=== PATIENT | male | born 1970 | race Caucasian/White ===

== ENCOUNTER 2019-04-23 17:32 | Emergency (ER) | payer OTHER ==
[2019-04-23] MEDS ORDERED: Ondansetron 4 MG Tab.DIS PO ONE (18:41)
--- NOTE | 2019-04-23 19:01 | EDM.PDOC ---
<Darling Cannon Lor - Last Filed: 04/23/19 22:36> ED HPI GENERAL MEDICAL PROBLEM - General Chief Complaint: General Stated Complaint: [facility] Time Seen by Provider: 04/23/19 18:22 Source of Information: Reports: Patient History Limitations: Reports: Altered Mental Status (pt states he does not know where he is, what day it is, what time it is, or who the president of the [facility] is.) - History of Present Illness INITIAL COMMENTS - FREE TEXT/NARRATIVE: Patient is a 49-year-old male who is brought into the ED by ambulance service for a couple different complaints. The patient was staying at a local motel. Patient is complaining of mid abdominal pain, and constipation, and states that he cannot urinate. Patient states that he woke up in this hotel room, and he does not know how long he was asleep or what time it was when he woke up. Patient is delusional at this time, he states that he has metal plates in his abdomen that opening close. He does not know where he is, he does not know what town he is in, he did not know what year it is, he is not know who the president [facility] is. Patient states that he is requiring x-rays as well , and states that he also does not have any blood left in him. He states he is not having any fevers or chills, he states he has been mildly nauseous as he has been dry heaving. He states that he does not drink water, his oral mucosa is very dry. He denies taking any medications on a regular basis, he does not have a regular doctor that he sees. He denies any further medical history. He denies any alcohol use, tobacco use, or drug use at this time. He does not think he has any sort of surgical history. Abdomen Pain Score (Numeric/FACES): 8 - Related Data Allergies Allergy/AdvReac Type Severity Reaction Status Date / Time No Known Allergies Allergy Verified 04/23/19 17:41 Home Meds: Home Meds . [No Known Home Meds] 04/23/19 [History] Past Medical History - Past Health History Medical/Surgical History: Denies Medical/Surgical History Social & Family History - Tobacco Use Smoking Status *Q: Never Smoker - Caffeine Use Caffeine Use: Reports: None - Recreational Drug Use Recreational Drug Use: No ED ROS GENERAL - Review of Systems Review Of Systems: See Below Constitutional: Denies: Fever, Chills HEENT: Denies: Throat Pain Respiratory: Denies: Shortness of Breath, Cough Cardiovascular: Denies: Chest Pain GI/Abdominal: Reports: Abdominal Pain (epigastric abd pain), Constipation, Nausea. Denies: Diarrhea, Vomiting : Denies: Dysuria, Frequency, Urgency Skin: Reports: Dryness Psychiatric: Reports: Confusion. Denies: Agitation, Anxiety, Hallucinations, Homicidal Ideation, Mood Lability, Suicidal Ideation ED EXAM, GENERAL - Physical Exam Exam: See Below Exam Limited By: Altered Mental Status General Appearance: Alert, WD/WN, No Apparent Distress Eye Exam: Bilateral Eye: EOMI, Normal Inspection, PERRL Ears: Normal External Exam Throat/Mouth: Normal Inspection, Normal Lips, Normal Teeth, Normal Gums, Normal Oropharynx, Normal Voice, No Airway Compromise, Other (oral mucosa is very dry at this time.) Head: Atraumatic, Normocephalic Neck: Normal Inspection Respiratory/Chest: No Respiratory Distress, Lungs Clear, Normal Breath Sounds, No Accessory Muscle Use, Chest Non-Tender Cardiovascular: Normal Peripheral Pulses, Regular Rate, Rhythm, No Murmur Peripheral Pulses: 3+: Radial (L), Radial (R) GI/Abdominal: Normal Bowel Sounds, Soft, Guarding, Tender (generalized abdominal pain). No: Rigid, Rebound Neurological: Alert, CN II-XII Intact (grossly), Normal Gait Psychiatric: Other (Patient is expressing delusional thought processes. He states that he has plates in his abdomen that allow him to use the bathroom. He is told nursing staff that he does not drink water, and cannot pee, as he does not have "insides". He is not threatening to hurt others, nor is he threatening to hurt himself) Skin Exam: Warm, Intact, Normal Color, No Rash, Other (Skin is very dry, flaky in nature, oral mucosa is very dry.) EKG INTERPRETATION EKG Date: 04/23/19 Time: 20:30 Rhythm: NSR Rate (Beats/Min): 91 [place]: Normal P-Wave: Present QRS: Normal ST-T: Depressed (1mm depression noted w T wave inversions in V4-V5.) QT: Normal Comparison: NA - No Prior EKG EKG Interpretation Comments: Reviewed with Dr. Jaquez and by myself. There is a [address] depression with T wave inversions noted in V4 and V5, but no other acute ischemic changes. Course - Vital Signs Last Recorded V/S: Last Vital Signs Temp 35.7 C L 04/23/19 17:43 Pulse 94 04/23/19 17:43 Resp 20 04/23/19 17:43 BP 117/99 H 04/23/19 17:43 Pulse Ox 96 04/23/19 17:43 - Orders/Labs/Meds Orders: Active Orders 24 hr Category Date Time Status EKG Documentation Completion [RC] STAT Care 04/23/19 20:02 Active Oral Fluid Challenge [RC] ASDIRECTED Care 04/23/19 18:40 Active Peripheral IV Care [RC] . DIRECTED Care 04/23/19 21:39 Active Abdomen 2V AP Flat Upright [CR] Stat Exams 04/23/19 18:39 Taken Lactated Ringers [Ringers, Lactated] 1,000 ml Med 04/23/19 23:15 Active IV ASDIRECTED Sodium Chloride 0.9% [Saline Flush] Med 04/23/19 21:39 Active 10 ml FLUSH ASDIRECTED PRN Peripheral IV Insertion Adult [OM.PC] Stat Oth 04/23/19 21:39 Ordered Medication Orders Lactated Ringer's (Ringers, Lactated) 1,000 mls @ 150 mls/hr IV ASDIRECTED KASANDRA Last Admin: 04/23/19 23:45 Dose: 150 mls/hr Sodium Chloride (Saline Flush) 10 ml FLUSH ASDIRECTED PRN PRN Reason: Keep Vein Open Last Admin: 04/23/19 22:00 Dose: 10 ml Labs: Laboratory Tests 04/23/19 04/23/19 04/23/19 Range/Units 00:38 00:38 19:34 WBC 12.20 H (4.23-9.07) K/mm3 RBC 5.82 (4.63-6.08) M/mm3 Hgb 17.4 (13.7-17.5) gm/dl Hct 52.6 H (40.1-51.0) % MCV 90.4 (79.0-92.2) fl MCH 29.9 (25.7-32.2) pg MCHC 33.1 (32.2-35.5) g/dl RDW Std Deviation 48.2 H (35.1-43.9) fL Plt Count 379 H (163-337) K/mm3 MPV 11.9 (9.4-12.3) fl Neut % (Auto) 80.9 H (34.0-67.9) % Lymph % (Auto) 13.1 L (21.8-53.1) % [place] % (Auto) 5.8 (5.3-12.2) % Eos % (Auto) 0 L (0.8-7.0) Baso % (Auto) 0.1 (0.1-1.2) % Neut # (Auto) 9.87 H (1.78-5.38) K/mm3 Lymph # (Auto) 1.60 (1.32-3.57) K/mm3 [place] # (Auto) 0.71 (0.30-0.82) K/mm3 Eos # (Auto) 0.00 L (0.04-0.54) K/mm3 Baso # (Auto) 0.01 (0.01-0.08) K/mm3 Manual Slide Review Normal smear Sodium (136-145) mEq/L Potassium (3.5-5.1) mEq/L Chloride (98-107) mEq/L Carbon Dioxide (21-32) mEq/L Anion Gap (5-15) BUN (7-18) mg/dL Creatinine (0.7-1.3) mg/dL Est Cr Clr Drug Dosing mL/min Estimated GFR (MDRD) (>60) mL/min BUN/Creatinine Ratio (14-18) Glucose (74-106) mg/dL Calcium (8.5-10.1) mg/dL Total Bilirubin (0.2-1.0) mg/dL AST (15-37) U/L ALT (16-63) U/L Alkaline Phosphatase (46-116) U/L Troponin I (0.00-0.056) ng/mL Total Protein (6.4-8.2) g/dl Albumin (3.4-5.0) g/dl Globulin gm/dL Albumin/Globulin Ratio (1-2) TSH 3rd Generation (0.358-3.74) uIU/mL Urine Color Miriam H (Yellow) Urine Appearance Cloudy H (Clear) Urine pH 6.0 (5.0-8.0) Ur Specific [place] 1.025 (1.005-1.030) Urine Protein 2+ H (Negative) Urine Glucose (UA) Trace H (Negative) Urine Ketones 1+ H (Negative) Urine Occult Blood Negative (Negative) Urine Nitrite Positive H (Negative) Urine Bilirubin 2+ H (Negative) Urine Urobilinogen 4.0 H (0.2-1.0) Ur Leukocyte Esterase Negative (Negative) Urine RBC 0-5 (0-5) /hpf Urine WBC 0-5 (0-5) /hpf Ur Squamous Epith Cells 0-5 (0-5) /hpf Calcium Oxalate Crystal Few H (NONE) Amorphous Sediment Few H (NOT SEEN) /hpf Urine Bacteria Moderate H (FEW) /hpf Urine Mucus Many H (FEW) /hpf Salicylates (2.8-20) mg/dL Urine Opiates Screen Negative (YWDYGH=677) Ur Buprenorphine Scrn Negative (CUTOFF=10) Ur Oxycodone Screen Negative (LNN7BS=595) Urine Methadone Screen Negative (JJA5ZV=475) Ur Propoxyphene Screen Negative (BVKSEG=224) Acetaminophen (10-30) ug/mL Ur Barbiturates Screen Negative (IQXCBX=804) Ur Tricyclics Screen Negative (BQEGXK=468) Ur Phencyclidine Scrn Negative (CUTOFF=25) Ur Amphetamine Screen Negative (HTHEFE=395) U Methamphetamines Scrn Negative (NKHPWU=199) U Benzodiazepines Scrn Negative (PTSBMW=936) U Cocaine Metab Screen Negative (HXZSIX=409) U Marijuana (THC) Screen Negative (CUTOFF=50) Ethyl Alcohol (0.00) gm% 04/23/19 04/23/19 04/23/19 Range/Units 19:34 19:34 19:34 WBC (4.23-9.07) K/mm3 RBC (4.63-6.08) M/mm3 Hgb (13.7-17.5) gm/dl Hct (40.1-51.0) % MCV (79.0-92.2) fl MCH (25.7-32.2) pg MCHC (32.2-35.5) g/dl RDW Std Deviation (35.1-43.9) fL Plt Count (163-337) K/mm3 MPV (9.4-12.3) fl Neut % (Auto) (34.0-67.9) % Lymph % (Auto) (21.8-53.1) % [place] % (Auto) (5.3-12.2) % Eos % (Auto) (0.8-7.0) Baso % (Auto) (0.1-1.2) % Neut # (Auto) (1.78-5.38) K/mm3 Lymph # (Auto) (1.32-3.57) K/mm3 [place] # (Auto) (0.30-0.82) K/mm3 Eos # (Auto) (0.04-0.54) K/mm3 Baso # (Auto) (0.01-0.08) K/mm3 Manual Slide Review Sodium 147 H (136-145) mEq/L Potassium 3.2 L (3.5-5.1) mEq/L Chloride 106 (98-107) mEq/L Carbon Dioxide 25 (21-32) mEq/L Anion Gap 19.2 H (5-15) BUN 17 (7-18) mg/dL Creatinine 1.2 (0.7-1.3) mg/dL Est Cr Clr Drug Dosing 76.10 mL/min Estimated GFR (MDRD) > 60 (>60) mL/min BUN/Creatinine Ratio 14.2 (14-18) Glucose 133 H (74-106) mg/dL Calcium 10.5 H (8.5-10.1) mg/dL Total Bilirubin 1.4 H (0.2-1.0) mg/dL AST 37 (15-37) U/L ALT 124 H (16-63) U/L Alkaline Phosphatase 78 (46-116) U/L Troponin I (0.00-0.056) ng/mL Total Protein 8.4 H (6.4-8.2) g/dl Albumin 4.2 (3.4-5.0) g/dl Globulin 4.2 gm/dL Albumin/Globulin Ratio 1.0 (1-2) TSH 3rd Generation 1.434 (0.358-3.74) uIU/mL Urine Color (Yellow) Urine Appearance (Clear) Urine pH (5.0-8.0) Ur Specific [place] (1.005-1.030) Urine Protein (Negative) Urine Glucose (UA) (Negative) Urine Ketones (Negative) Urine Occult Blood (Negative) Urine Nitrite (Negative) Urine Bilirubin (Negative) Urine Urobilinogen (0.2-1.0) Ur Leukocyte Esterase (Negative) Urine RBC (0-5) /hpf Urine WBC (0-5) /hpf Ur Squamous Epith Cells (0-5) /hpf Calcium Oxalate Crystal (NONE) Amorphous Sediment (NOT SEEN) /hpf Urine Bacteria (FEW) /hpf Urine Mucus (FEW) /hpf Salicylates (2.8-20) mg/dL Urine Opiates Screen (ZZGKKR=310) Ur Buprenorphine Scrn (CUTOFF=10) Ur Oxycodone Screen (OTK8YY=452) Urine Methadone Screen (SOH7FF=475) Ur Propoxyphene Screen (XKVIMU=610) Acetaminophen 0 L (10-30) ug/mL Ur Barbiturates Screen (MEGEBD=667) Ur Tricyclics Screen (UTHAYP=123) Ur Phencyclidine Scrn (CUTOFF=25) Ur Amphetamine Screen (XFOLLF=467) U Methamphetamines Scrn (ZKSHJK=553) U Benzodiazepines Scrn (PPLCAE=513) U Cocaine Metab Screen (HYMBYW=640) U Marijuana (THC) Screen (CUTOFF=50) Ethyl Alcohol 0.00 (0.00) gm% 04/23/19 04/23/19 04/24/19 Range/Units 19:34 19:34 04:51 WBC (4.23-9.07) K/mm3 RBC (4.63-6.08) M/mm3 Hgb (13.7-17.5) gm/dl Hct (40.1-51.0) % MCV (79.0-92.2) fl MCH (25.7-32.2) pg MCHC (32.2-35.5) g/dl RDW Std Deviation (35.1-43.9) fL Plt Count (163-337) K/mm3 MPV (9.4-12.3) fl Neut % (Auto) (34.0-67.9) % Lymph % (Auto) (21.8-53.1) % [place] % (Auto) (5.3-12.2) % Eos % (Auto) (0.8-7.0) Baso % (Auto) (0.1-1.2) % Neut # (Auto) (1.78-5.38) K/mm3 Lymph # (Auto) (1.32-3.57) K/mm3 [place] # (Auto) (0.30-0.82) K/mm3 Eos # (Auto) (0.04-0.54) K/mm3 Baso # (Auto) (0.01-0.08) K/mm3 Manual Slide Review Sodium 145 (136-145) mEq/L Potassium 3.8 (3.5-5.1) mEq/L Chloride 108 H (98-107) mEq/L Carbon Dioxide 28 (21-32) mEq/L Anion Gap 12.8 (5-15) BUN 16 (7-18) mg/dL Creatinine 1.1 (0.7-1.3) mg/dL Est Cr Clr Drug Dosing 83.02 mL/min Estimated GFR (MDRD) > 60 (>60) mL/min BUN/Creatinine Ratio 14.5 (14-18) Glucose 123 H (74-106) mg/dL Calcium 9.3 (8.5-10.1) mg/dL Total Bilirubin (0.2-1.0) mg/dL AST (15-37) U/L ALT (16-63) U/L Alkaline Phosphatase (46-116) U/L Troponin I < 0.017 (0.00-0.056) ng/mL Total Protein (6.4-8.2) g/dl Albumin (3.4-5.0) g/dl Globulin gm/dL Albumin/Globulin Ratio (1-2) TSH 3rd Generation (0.358-3.74) uIU/mL Urine Color (Yellow) Urine Appearance (Clear) Urine pH (5.0-8.0) Ur Specific [place] (1.005-1.030) Urine Protein (Negative) Urine Glucose (UA) (Negative) Urine Ketones (Negative) Urine Occult Blood (Negative) Urine Nitrite (Negative) Urine Bilirubin (Negative) Urine Urobilinogen (0.2-1.0) Ur Leukocyte Esterase (Negative) Urine RBC (0-5) /hpf Urine WBC (0-5) /hpf Ur Squamous Epith Cells (0-5) /hpf Calcium Oxalate Crystal (NONE) Amorphous Sediment (NOT SEEN) /hpf Urine Bacteria (FEW) /hpf Urine Mucus (FEW) /hpf Salicylates 0.2 L (2.8-20) mg/dL Urine Opiates Screen (MNKXYH=834) Ur Buprenorphine Scrn (CUTOFF=10) Ur Oxycodone Screen (AZK2HA=655) Urine Methadone Screen (RUW1OX=391) Ur Propoxyphene Screen (QXEZXU=080) Acetaminophen (10-30) ug/mL Ur Barbiturates Screen (HWCHIP=995) Ur Tricyclics Screen (WIGNCP=135) Ur Phencyclidine Scrn (CUTOFF=25) Ur Amphetamine Screen (OICVGG=939) U Methamphetamines Scrn (LIQLBK=608) U Benzodiazepines Scrn (CYIJTV=784) U Cocaine Metab Screen (VMLIZI=531) U Marijuana (THC) Screen (CUTOFF=50) Ethyl Alcohol (0.00) gm% Meds: Medications Generic Name Dose Route Start Last Admin Trade Name Freq PRN Reason Stop Dose Admin Lactated Ringer's 1,000 mls @ 150 mls/hr 04/23/19 23:15 04/23/19 23:45 Ringers, Lactated IV 150 mls/hr ASDIRECTED KASANDRA Administration Sodium Chloride 10 ml 04/23/19 21:39 04/23/19 22:00 Saline Flush FLUSH 10 ml ASDIRECTED PRN Administration Keep Vein Open Discontinued Medications Generic Name Dose Route Start Last Admin Trade Name Freq PRN Reason Stop Dose Admin Sodium Chloride 1,000 mls @ 999 mls/hr 04/23/19 21:39 04/23/19 22:22 Normal Saline IV 04/23/19 22:39 999 mls/hr ONETIME ONE Administration Magnesium Citrate 296 ml 04/23/19 21:54 04/23/19 22:22 Citrate Of Magnesia PO 04/23/19 21:55 296 ml ONETIME ONE Administration Ondansetron HCl 4 mg 04/23/19 18:41 04/23/19 18:48 Zofran Odt PO 04/23/19 18:42 4 mg ONETIME ONE Administration Potassium Chloride 40 meq 04/23/19 22:30 04/23/19 22:43 Klor-Con M20 PO 04/23/19 22:31 40 meq ONETIME ONE Administration - Re-Assessments/Exams Free Text/Narrative Re-Assessment/Exam: 04/23/19 19:06 Patient presents to the ED via ambulance service for a couple different complaints. Patient is somewhat delusional, he is complaining of abdominal pain however and nausea. I have obtained a flat and upright abdomen x-rays, laboratory evaluation to include CBC, CMP, EtOH, urinalysis and a drug screen if he will provide us with urine for this. He is given 4 mg of ODT Zofran, as he states he does not want an IV, and he does not want IV fluids. I will try to get the nurse to get him to drink oral water or oral fluids to try to get him to provide us with a urine sample at this time. 04/23/19 21:39 Labs are back, and TSH is within normal limits, metabolic panel demonstrates a mildly low potassium, mildly elevated sodium, elevated anion gap of 19, and other subtle abnormalities. I do believe this is due to the patient not wanting to eat or drink anything. I called [facility] at [facility] for possible psych transfer due to the patient's mental state, they state that while they recognize the need for his psychiatric admission, that they cannot accept the patient on the psychiatric floor because he needs IV fluids. At this time I have ordered an IV with IV fluids to be given to the patient, in hopes that he will allow us to do so. Patient did refuse IV fluids to begin with on initial exam. When I asked him if would be okay if I ordered an IV with IV fluids, he did not give me an answer. But he is allowing lab to draw their labs as needed. 04/23/19 22:34 Patient was willing to let us start an IV at this time, he will be given 1 L of fluids wide open, and then likely a second liter over the course of the night, I was in contact again with AMADO Campos, Dr. Rosie Grimm, their psychologist office automation technician would like his labs redrawn and made sure that they are within normal limits before she accept him for management at this time. His potassium is only mildly low at 3.2, so he did get 40 mEq by mouth of this, and I am hopeful that the IV fluids will help equilibrate the other abnormalities. It is likely that the patient will have to stay in this ER overnight, and be transported by petrophysicist tomorrow morning to [facility]. Although I do not have acceptance at this time, I am hopeful that this will have a bed available in the morning, and when the patient's labs are "normalized". Departure - Departure Time of Disposition: 22:36 Disposition: DC/Tfer to Psych Hosp/Unit 65 Condition: Fair Clinical Impression: Delusions - Discharge Information *PRESCRIPTION DRUG MONITORING PROGRAM REVIEWED*: No *COPY OF PRESCRIPTION DRUG MONITORING REPORT IN PATIENT NILES: No Referrals: PCP,None [Primary Care Provider] - Forms: ED Department Discharge Sepsis Event Note - Evaluation Sepsis Screening Result: No Definite Risk - Focused Exam Date Exam was Performed: 04/23/19 Time Exam was Performed: 22:36 <He Jaquez - Last Filed: 04/24/19 05:52> Course - Re-Assessments/Exams Free Text/Narrative Re-Assessment/Exam: 04/24/19 05:41 The patient's repeat chemistry panel is remarkable only for a chloride of 108 and a blood glucose of 123, with the remainder of his chemistry panel being normal. We are checking with [facility] to see if the patient will now be accepted. 04/24/19 05:50 Case discussed with the nurse on the [facility] psychiatric floor at 05:40. Case then discussed with Tata at [facility] at 05:45. Case then discussed with Dr. Grimm, Psychiatrist at [facility], at 05:48. She accepted the patient for transfer to their facility. The patient will be transported by the [facility]'s department. Departure - Departure Time of Disposition: 05:51 Sepsis Event Note - Focused Exam Date Exam was Performed: 04/24/19 Time Exam was Performed: 05:50
[2019-04-23] MEDS ORDERED: Sodium Chloride 0.9% 1,000 ML IV ONE (21:39)
[2019-04-23] MEDS ORDERED: Sodium Chloride 0.9% 10 ML Syringe FLUSH PRN (21:39)
[2019-04-23] MEDS ORDERED: Magnesium Citrate Solution 296 ML Bottle PO ONE (21:54)
[2019-04-23] MEDS ORDERED: Potassium Chloride 20 MEQ Tab.ER PO ONE (22:30)
[2019-04-23] MEDS ORDERED: Lactated Ringers 1,000 ML IV SCH (23:15)
--- NOTE | 2019-04-24 17:09 | CR ---
Abdomen: Supine view of the abdomen was obtained as well as upright study. Comparison: No previous study. Bowel gas pattern appears normal. No free air is identified. No abnormal calcifications or soft tissue abnormality is seen. Bony structures are unremarkable. Impression: 1. Nothing acute is appreciated on two-view abdominal x-ray. Diagnostic code #1 This report was dictated in [place] Standard Time
== END 2019-04-24 09:15 ==
LOC: JD.ED 17:32
DX: F22 Delusional disorders (principal); R10.84 Generalized abdominal pain; R11.0 Nausea
CPT/HCPCS: 36415; 74019; 80048; 80053; 80306; 80307; 81001; 84443; 84484; 85025; 93005; 96360; 96361; 99285; A9270; J7030; J7120; 93010; 99284